=== PATIENT | female | born 1965 | race Caucasian/White ===

== ENCOUNTER 2017-03-23 17:16 | Inpatient (IN) | payer BC ==
[~2017-03-23] VITALS: Ht 152.4 cm; Wt 58.1 kg
[2017-03-23 17:34] VITALS: BP_SYST 135
[2017-03-23] MEDS: metFORMIN HCL 500 MG TABLET PO SCH (18:00)
[2017-03-23] MEDS ORDERED: traMADol HCL HCL 50 MG TABLET (ULTRAM) PO PRN (18:00)
[2017-03-23] MEDS ORDERED: IBUPROFEN 400 MG TABLET PO PRN (18:00)
[2017-03-23 18:43] LABS: ANION GAP 9 (5-15); CALCIUM 9.9 mg/dL (8.4-11.0); CHLORIDE 95 mmol/L (98-107); CREATININE 1.12 mg/dL (0.55-1.30); POTASSIUM 4.1 mmol/L (3.5-5.1); SODIUM SERUM 134 mmol/L (136-145); UREA NITROGEN, BLOOD 26 mg/dL (8-21)
[2017-03-23 18:55] LABS: LIPASE 307 U/L (73-393)
[2017-03-23 18:58] LABS: GFR AFRICAN AMERICAN 65 mL/min (>90)
[2017-03-23 19:03] LABS: GLUCOSE 509 mg/dL (70-99)
[2017-03-23] MEDS ORDERED: INSULIN REGULAR, HUMAN 100 UNITS/ML, 10 ML VIAL SUBCUT ONE (19:45)
[2017-03-23 20:00] VITALS: BP_SYST 140
[2017-03-23] MEDS: MECLIZINE HCL 25 MG TABLET (ANITVERT) PO SCH (21:02)
[2017-03-23] MEDS: INSULIN REGULAR, HUMAN 100 UNITS/ML, 10 ML VIAL (novoLIN R) SUBCUT PRN (22:59)
[2017-03-23 23:40] VITALS: BP_SYST 118
[2017-03-24] MEDS: INSULIN REGULAR, HUMAN 100 UNITS/ML, 10 ML VIAL (novoLIN R) SUBCUT PRN ×4 (06:28→21:37)
[2017-03-24 07:46] LABS: CHOLESTEROL 236 mg/dL (<200); HDL CHOLESTEROL 45 mg/dL (>55); LDL CHOLESTEROL 175 mg/dL (<100); TRIGLYCERIDES 215 mg/dL (30-150)
[2017-03-24] MEDS: metFORMIN HCL 500 MG TABLET PO SCH ×3 (08:00→17:03)
[2017-03-24 08:34] LABS: ACETONE, SERUM NEGATIVE (NEGATIVE)
[2017-03-24] MEDS: MECLIZINE HCL 25 MG TABLET (ANITVERT) PO SCH ×3 (10:03→21:28)
[2017-03-24] MEDS: PIOGLITAZONE HCL 15 MG TABLET PO SCH (10:05)
[2017-03-24] MEDS: amLODIPine BESYLATE 10 MG TABLET PO SCH (10:05)
[2017-03-24] MEDS: ATENOLOL 25 MG TABLET(TENORMIN) PO SCH (10:05)
[2017-03-24 11:26] VITALS: BP_SYST 112
[2017-03-24 16:04] VITALS: BP_SYST 136
[2017-03-24 19:30] VITALS: BP_SYST 113
[2017-03-24] MEDS: CEFEPIME 1 GM/DEXT-ISO-OSM 50 ML IV SCH (22:54)
[2017-03-25 00:51] VITALS: BP_SYST 123
[2017-03-25 04:00] VITALS: BP_SYST 127
[2017-03-25] MEDS: INSULIN REGULAR, HUMAN 100 UNITS/ML, 10 ML VIAL (novoLIN R) SUBCUT PRN ×4 (05:54→22:20)
[2017-03-25 08:00] VITALS: BP_SYST 135
[2017-03-25 08:07] LABS: HEPATITIS C VIRUS AB <0.1 s/co ratio (0.0-0.9)
[2017-03-25] MEDS: metFORMIN HCL 500 MG TABLET PO SCH ×2 (09:19→17:28)
[2017-03-25] MEDS: PIOGLITAZONE HCL 15 MG TABLET PO SCH (09:19)
[2017-03-25] MEDS: CEFEPIME 1 GM/DEXT-ISO-OSM 50 ML IV SCH ×2 (09:19→22:15)
[2017-03-25] MEDS: MECLIZINE HCL 25 MG TABLET (ANITVERT) PO SCH ×3 (09:20→22:15)
[2017-03-25] MEDS: amLODIPine BESYLATE 10 MG TABLET PO SCH (09:20)
[2017-03-25] MEDS: ATENOLOL 25 MG TABLET(TENORMIN) PO SCH (09:22)
[2017-03-25 12:00] VITALS: BP_SYST 118
[2017-03-25 16:00] VITALS: BP_SYST 120
[2017-03-25 20:00] VITALS: BP_SYST 130
[2017-03-25] MEDS ORDERED: SIMVASTATIN 20 MG TABLET PO SCH (21:00)
[2017-03-26 01:06] VITALS: BP_SYST 127
[2017-03-26 04:42] VITALS: BP_SYST 124
[2017-03-26] MEDS: INSULIN REGULAR, HUMAN 100 UNITS/ML, 10 ML VIAL (novoLIN R) SUBCUT PRN ×2 (06:31→11:25)
[2017-03-26] MEDS: metFORMIN HCL 500 MG TABLET PO SCH (08:00)
[2017-03-26 08:05] VITALS: BP_SYST 135
[2017-03-26] MEDS: MECLIZINE HCL 25 MG TABLET (ANITVERT) PO SCH (08:06)
[2017-03-26] MEDS: PIOGLITAZONE HCL 15 MG TABLET PO SCH (08:06)
[2017-03-26] MEDS: amLODIPine BESYLATE 10 MG TABLET PO SCH (08:07)
[2017-03-26] MEDS: ATENOLOL 25 MG TABLET(TENORMIN) PO SCH (08:08)
[2017-03-26] MEDS: CEFEPIME 1 GM/DEXT-ISO-OSM 50 ML IV SCH (08:20)
[2017-03-26 12:00] VITALS: BP_SYST 132
[2017-03-26] MEDS ORDERED: GADOPENTETATE DIMEGLUMINE 15 ML VIAL IV ONE (12:39)
[2017-03-26 14:00] VITALS: BP_SYST 127
[2017-03-26 15:20] VITALS: BP_SYST 132
== END 2017-03-26 15:44 | disposition home or self-care (01) | DRG 69 ==
LOC: SMU 17:16
PROVIDERS: ADMIT Family Medicine; ATTEND Family Medicine
DX: G45.9 Transient cerebral ischemic attack, unspecified (principal); E11.65 Type 2 diabetes mellitus with hyperglycemia; H83.09 Labyrinthitis, unspecified ear; E78.5 Hyperlipidemia, unspecified; I10 Essential (primary) hypertension; R29.6 Repeated falls; J32.9 Chronic sinusitis, unspecified; Z72.89 Other problems related to lifestyle; Z91.010 Allergy to peanuts; Z91.018 Allergy to other foods
CPT/HCPCS: 36415; 70450-TC; 70553; 71010; 80048; 80061; 82009-TC; 82962; 83036; 83690-TC; 84443-TC; 84484; 86803; 87040-TC; A9579; J0692; J1815; J7050; J8597

== ENCOUNTER 2021-07-14 23:23 | Observation (INO) | payer BC, SELFPAY ==
[~2021-07-14] VITALS: Ht 165.1 cm; Wt 59.1 kg
[2021-07-14 23:35] VITALS: BP_SYST 157
[2021-07-15] MEDS ORDERED: NACL 0.9% 1,000 ML IV ONE
[2021-07-15] MEDS ORDERED: ZIT250 PO ×2 (00:14)
[2021-07-15 00:31] LABS: BASOPHILS % (AUTO) 0.3 % (0.0-2.0); EOSINOPHILS # (AUTO) 0.2 K/uL (0.0-0.4); HEMATOCRIT 34.8 % (36-48); HEMOGLOBIN 11.9 g/dL (12.0-16.0); LYMPHOCYTES # (AUTO) 1.7 K/uL (1.0-5.5); LYMPHOCYTES % (AUTO) 24.2 % (20.5-51.5); MEAN CORPUSCULAR HEMOGLOBIN 30 pg (27-31); MEAN CORPUSCULAR HGB CONC 34 % (32-36); MEAN CORPUSCULAR VOLUME 86 fL (79.0-98.0); MONOCYTES # (AUTO) 0.5 K/uL (0.0-1.0); MONOCYTES % (AUTO) 6.3 % (1.7-9.3); NEUTROPHILS # (AUTO) 4.7 K/uL (1.8-7.7); NEUTROPHILS % (AUTO) 66.2 % (40.0-70.0); PLATELET COUNT (AUTO) 203 K/uL (130-430); RED BLOOD CELL COUNT(AUTO) 4.03 MIL/uL (4.2-6.2); RED CELL DISTRIBUTION WIDTH 13.2 % (9.0-15.0); WHITE BLOOD COUNT (AUTO) 7.2 K/uL (4.8-10.8)
[2021-07-15 00:48] LABS: INR 0.8 (0.8-1.2); PROTHROMBIN TIME 8.9 SECS (9.5-12.5)
[2021-07-15 00:52] LABS: CALCIUM 8.5 mg/dL (8.4-11.0); CREATININE 0.82 mg/dL (0.55-1.30); POTASSIUM 3.9 mmol/L (3.5-5.1)
[2021-07-15] MEDS ORDERED: INSULIN REGULAR, HUMAN 10 UNITS/0.1 ML INJ IVP ONE ×2 (01:00→01:45)
[2021-07-15 01:05] LABS: TOTAL BILIRUBIN 0.3 mg/dL (0.0-1.0)
[2021-07-15] MEDS ORDERED: hydrALAZINE HCL 20 MG/ML VIAL IVP ONE (01:45)
[2021-07-15 01:49] LABS: BARBITURATE, URINE NEGATIVE (NEG <=200); BENZODIAZEPINE, URINE NEGATIVE (NEG <=150); CANNABINOID, URINE NEGATIVE (NEG <=50); COCAINE, URINE NEGATIVE (NEG <=150); METHAMPHETAMINES SCREEN,URINE NEGATIVE (NEG <=500); OPIATE, URINE NEGATIVE (NEG <=100); PHENCYCLIDINE SCREEN,URINE NEGATIVE (NEG <=25); UR TRICYCLIC ANTIDEPRESSANTS NEGATIVE (NEG <=300); URINE AMPHETAMINE NEGATIVE (NEG <=500); URINE METHADONE NEGATIVE (NEG <=200); URINE OXYCODONE SCREEN NEGATIVE (NEG <=100); URINE PROPOXYPHENE SCREEN NEGATIVE (NEG <=300)
[2021-07-15 01:50] LABS: BILIRUBIN,URINE NEGATIVE (NEGATIVE); CLARITY/URINE CLEAR (CLEAR); COLOR,URINE YELLOW (YELLOW); GLUCOSE,URINE 3+ (NEGATIVE); KETONES,URINE 1+ (NEGATIVE); LEUKOCYTE ESTERASE ,URINE NEGATIVE (NEGATIVE); NITRITE, URINE NEGATIVE (NEGATIVE); PROTEIN URINE TRACE (NEGATIVE); UROBILINOGEN,URINE 0.2 (0.2-1.0)
[2021-07-15 01:54] LABS: BLOOD, URINE TRACE (NEGATIVE)
[2021-07-15 02:24] LABS: BACTERIA,URINE FEW /HPF (None Seen); MUCUS,URINE 1+ /LPF (None Seen); YEAST,URINE Few /HPF (None Seen)
[2021-07-15] MEDS: NACL 0.9% 1,000 ML IV SCH ×2 (03:03→06:40)
[2021-07-15] MEDS ORDERED: INSULIN REGULAR, HUMAN 10 UNITS/0.1 ML INJ ONE (04:47)
[2021-07-15] MEDS: INSULIN REGULAR, HUMAN 100 UNITS/ML, 10 ML VIAL (humuLIN R) SUBCUT PRN ×2 (04:49→12:44)
[2021-07-15 05:05] VITALS: BP_SYST 155
[2021-07-15] MEDS ORDERED: LORazepam 2 MG/ML VIAL IVP PRN (07:45)
[2021-07-15] MEDS ORDERED: INSULIN NPH/REGULAR 70-30, 100 UNITS/ML, 10 ML VIAL SUBCUT SCH (07:45)
[2021-07-15] MEDS ORDERED: POTASSIUM CHLORIDE 20 MEQ TAB.PRT.SR PO PRN (07:45)
[2021-07-15] MEDS ORDERED: MAGNESIUM SULFATE 50 ML IV PRN (07:45)
[2021-07-15] MEDS ORDERED: ONDANSETRON HCL 4 MG/2 ML VIAL IVP PRN (07:45)
[2021-07-15] MEDS ORDERED: MORPHINE 2 MG/ML INJ. SYRINGE IVP PRN ×2 (07:45)
[2021-07-15] MEDS ORDERED: MUPIROCIN 2% TOPICAL OINTMENT 22 GM NS PRN (07:45)
[2021-07-15] MEDS ORDERED: DOCUSATE SODIUM 100 MG CAPSULE PO PRN (07:45)
[2021-07-15] MEDS ORDERED: NALOXONE HCL 0.4 MG/ML AMP (NARCAN) IVP PRN ×2 (07:45)
[2021-07-15] MEDS ORDERED: ZOLPIDEM TARTRATE 5 MG TABLET PO PRN (07:45)
[2021-07-15] MEDS ORDERED: ACETAMINOPHEN 325 MG TABLET PO PRN ×2 (07:45→08:15)
[2021-07-15] MEDS ORDERED: FLUCONAZOLE 200 MG TABLET (DIFLUCAN) PO ONE (08:00)
[2021-07-15 08:29] VITALS: BP_SYST 133
[2021-07-15] MEDS ORDERED: lisinopriL 5 MG TABLET PO SCH (09:00)
[2021-07-15] MEDS ORDERED: cefTRIAXone 1 GM in D5W 50 ML IV SCH (09:00)
[2021-07-15 12:00] VITALS: BP_SYST 130
[2021-07-15] MEDS ORDERED: NITR-85 PO (14:58)
[2021-07-15 16:10] VITALS: BP_SYST 130
== END 2021-07-15 16:47 | disposition home or self-care (01) ==
LOC: SED 23:23 → STU 07-15 02:42
PROVIDERS: ADMIT General Practice; ATTEND General Practice
DX: G45.9 Transient cerebral ischemic attack, unspecified (principal); Z20.822 Contact with and (suspected) exposure to COVID-19; G90.9 Disorder of the autonomic nervous system, unspecified; E11.43 Type 2 diabetes mellitus with diabetic autonomic (poly)neuropathy; E11.65 Type 2 diabetes mellitus with hyperglycemia; D68.59 Other primary thrombophilia; I21.A1 Myocardial infarction type 2; E44.1 Mild protein-calorie malnutrition; I10 Essential (primary) hypertension; B37.49 Other urogenital candidiasis; B96.89 Other specified bacterial agents as the cause of diseases classified elsewhere; E78.5 Hyperlipidemia, unspecified; Z86.73 Personal history of transient ischemic attack (TIA), and cerebral infarction without residual deficits; Z86.79 Personal history of other diseases of the circulatory system; Z79.899 Other long term (current) drug therapy
CPT/HCPCS: 36415; 70450; 71045; 76376; 80053; 80307; 81000; 82962 ×2; 83036; 84484; 85025; 85610; 85730; 87086; 87426; 93005 ×2; 96361; 96365; 96372; 96374; 96375; 99285; G0378; J0360; J0696; J1815 ×2; J7060